=== PATIENT | female | born 1960 | race Caucasian/White ===

== ENCOUNTER 2017-05-21 10:17 | Inpatient (IN) ==
[2017-05-21] MEDS ORDERED: Acetaminophen 325 MG TABLET PO PRN (13:32)
[2017-05-21] MEDS ORDERED: *HR* Morphine 2 MG/ML SYRINGE IVP PRN (13:32)
[2017-05-21] MEDS ORDERED: Naloxone 0.4 MG/ML INJ IVP PRN (13:32)
[2017-05-21] MEDS ORDERED: Ondansetron 4 MG/2 ML VIAL IVP PRN (13:32)
[2017-05-21] MEDS: Pantoprazole 40 MG VIAL IVP SCH (14:11)
[2017-05-21 14:19] LABS: Basophils # 0.1 K/mcL (0.0-0.2); Basophils % 0.6 %; Eosinophils # 0.1 K/mcL (0.0-0.6); Eosinophils % 0.7 %; Hematocrit 40.9 % (35.3-44.9); Hemoglobin 14.6 g/dL (11.5-15.4); Immature Granulocytes % 0.3 % (0-4); Lymphocytes # 1.6 K/mcL (0.6-4.6); Lymphocytes % 17.9 %; Mean Corpuscular HGB Conc 35.7 g/dL (31.6-35.5); Mean Corpuscular Hemoglobin 32.5 pg (28.0-33.3); Mean Corpuscular Volume 91.1 fL (83.0-100.0); Mean Platelet Volume 9.4 fL (9.4-12.4); Monocytes # 0.6 K/mcL (0.0-1.3); Monocytes % 6.2 %; Neutrophils # 6.6 K/mcL (1.6-8.9); Platelet Count 285 K/mcL (140-400); Red Blood Count 4.49 M/mcL (3.82-4.97); Red Cell Distribution Width 14.3 % (11.5-14.5); Segmented Neutrophils % 74.3 %
[2017-05-21 14:32] LABS: BUN/Creatinine Ratio 21 (6-26); Blood Urea Nitrogen 15 mg/dL (7-20); Calcium 9.8 mg/dL (8.6-10.8); Carbon Dioxide 27 mEq/L (19-29); Chloride 109 mEq/L (98-109); Glucose 105 mg/dL (70-99); Osmolality,Calculated 293 (280-300); Potassium 3.7 mEq/L (3.5-4.5); Sodium 141 mEq/L (136-145); eGFR For African Americans > 60 (> 60); eGFR For Non-African Americans > 60 (> 60)
[2017-05-21 14:33] LABS: Chol/HDL Ratio 3.5 (0-4.9)
--- NOTE | 2017-05-21 14:48 | Internal Med History&Physical ---
<Govind August - Last Filed: 05/21/17 16:11> Date of Encounter: 05/21/17 Time of Encounter: 13:00 Assessment and Plan (1) Chest pain Current visit: Yes Status: Acute Patient presents with acute chest pain for the past 2 days which she states has become worse since 2 AM this morning. She describes the pain as sharp and stabbing now and is relieved with sitting up. Patient received nitroglycerin patch while at [facility]. Nitroglycerin SL PRN ordered. Patient placed on continuous cardiac telemetry and supplemental O2 with titration if SPO2 less than 92%. Initial two troponins and [facility] were 0.332 and 2.0 respectively. Initial troponin at [facility] was 2.48. Will trend troponins x2. Cardiology consult ordered and discussed with Dr. Persaud. Hematology consult ordered and discussed with Dr. Mir. Will continue to monitor patient closely for signs of bleeding. Will start heparin drip if PTT is within normal range. Patient to receive possible heart catheterization tomorrow, so patient will be NPO after midnight. Qualifiers: Chest pain type: other chest pain Qualified Code(s): R07.89 - Other chest pain; R07.8 - Other chest pain (2) Elevated troponin Current visit: Yes Status: Acute Patient presents with initial troponin level of 0.332 at [facility]. Before patient was transferred a second troponin level was requested which was 2.0. Troponin level drawn at [facility] was 2.48. Will trend troponins x2. Patient placed on continuous cardiac telemetry. Cardiology consult ordered and discussed with Dr. Persaud. Will continue to monitor patient. (3) SOB (shortness of breath) Current visit: Yes Status: Acute Patient presents with history of shortness of breath which she states has become acute within the past few days with exertion. CTA of chest ordered to rule out possible PE. Supplemental O2 with titration if SPO2 less than 92% ordered with continuous SpO2 monitoring. DuoNebs Q4 ordered PRN. Monitor patient and vital signs. (4) Elevated partial thromboplastin time (PTT) Current visit: Yes Status: Acute Patient presents with initial PTT of 64.1 at [facility] ED. Initial blood draw at [facility] shows PTT > 200. Stat PTT ordered. Hematology and cardiology updated on new PTT and will be notified of stat PTT results to determine the appropriateness of heparin drip for patient. 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 Hematology consult ordered and discussed with Dr. Mir who will see the patient and assess for heparin drip for current cardiac symptomatology and chest pain. (6) COPD (chronic obstructive pulmonary disease) Current visit: Yes Status: Chronic Patient presents with history of chronic COPD. Supplemental O2 with titration of SPO2 less than 90% ordered. Continuous SPO2 monitoring ordered. DuoNebs every 4 when necessary ordered. Qualifiers: COPD type: emphysema Emphysema type: unspecified Qualified Code(s): J43.9 - Emphysema, unspecified (7) HTN (hypertension) Current visit: Yes Status: Chronic Patient presents with history of chronic hypertension. Will monitor patient and vital signs and continue her hydrochlorothiazide and Cozaar. Qualifiers: Hypertension type: essential hypertension Qualified Code(s): I10 - Essential (primary) hypertension (8) HLD (hyperlipidemia) Current visit: Yes Status: Chronic Patient has history of chronic hyperlipidemia. Lipid panel ordered. Will continue patient's Lipitor. Qualifiers: Hyperlipidemia type: pure hypercholesterolemia Qualified Code(s): E78.00 - Pure hypercholesterolemia, unspecified; E78.0 - Pure hypercholesterolemia (9) DVT prophylaxis Current visit: Yes Status: Acute Patient placed on DVT prophylaxis admission protocol and current cardiac status. Patient currently suffers from factor XIII deficiency and received Brilinta at [facility] ED. SCDs ordered bilaterally for patient's lower extremities. Hematology consult placed. Internal Medicine - H&P: HPI Chief complaint: Chest pain Admitted From: Hospital to Hospital Transfer Plans for Post Hospital Care: Home History of present illness: Mrs. Morris is a 56 year old female who presents from the ED at [facility] with chief complaint of chest pain. Patient states her chest pain began 2 days ago between her shoulder blades which was located in the center of her back and moved to the left. She states this morning approximately at 2 AM she began to have sharp, stabbing pains in the center of her chest which became worse with laying down. She states the pain radiated to her left shoulder and left arm. She reports when she sat up the pain would lessen or subside. Mrs. morris has a history of 2 MIs, one in 2010 and another in 2012. She reports having no heart catheterizations replacement of stents in the past. She also reports SOB with exertion. Patient states that she had a nuclear pharm stress test and echocardiogram in February 2017 in preparation for gallbladder surgery. Nuclear stress test dated 02/20/17 showed small, mild intensity reversible perfusion defects involving the mid to apical anterior septum and apical lateral segments possibly due to breast attenuation, but ischemia could not be excluded. Test also showed no arrhythmias and a gated EF > 70%. Echocardiogram dated same date showed LVEF of 65%. Patient has a history of hyper lipidemia, hypertension, CT 2, COPD/emphysema, histoplasmosis with loss of central vision, CHF, factor XIII deficiency, and GERD. Mrs. Morris is a current every day smoker and denies alcohol or illicit drug use. Patient also reports history of falls recently. Patient's initial troponin level was 0.332 at [facility] with the requested second troponin level at 2.0 also at [place]. Patient is a moderate risk for cardiac event based on current symptomology and will be placed as observation status with continuous cardiac telemetry and supplemental O2 titration if SPO2 less than 92%, continuous SPO2 monitoring, trending troponins 3, cardiology consult ordered and discussed with Dr. Persaud who will see the patient, and nothing by mouth status except medications due to possible procedure. Hematology consult ordered and discussed with Dr. Mir due to patient being given Brilinta at [facility] and patient needing heparin drip for current cardiac symptomology. Patient to be monitored closely. Time spent with patient greater than 40 minutes. Past Med Surg Social Fam HX - Past Medical History Source: patient Medical history: asthma, COPD, hyperlipidemia, hypertension, myocardial infarction (x2 (first in 2010, second in 2012)) Psychiatric history: anxiety, depression - Past Surgical History Surgical History: , hysterectomy (Total), orthopedic, other (Right wrist), other (Bilteral tubal ligation, surgery on left axilla to remove excess breast tissue (non-cancerous)) - Social History Smoking Status: Current every day smoker Packs per day: 1 PPD Smokeless Tobacco Status: No Alcohol use: none Drug use: none Current living situation: Home Activity Level: Independent ambulation Recent Out of Country Travel Within the Last 8 Weeks: No Exposure or Possible Exposure to Illness During Travel: No - Family History Father Race: Family Member Ethnicity: Non- Living Status: Age at : 77 Cause of : CT Hx Family Cardiac Disorders: Yes (CT, HD, Stroke, HTN, HLD) Mother Race: Family Member Ethnicity: Non- Living Status: Age at : 73 Cause of : HD Hx Family Cardiac Disorders: Yes (HD) Hx Family Endocrine Disorder: Yes (DM) Brother Race: Family Member Ethnicity: Non- Living Status: Still Living Hx Family Cardiac Disorders: Yes (HTN, HD) Internal Medicine - H&P: Meds Albuterol Sulfate [Ventolin Hfa] 2 puff IH Q4H PRN 04/03/17 [History] Atorvastatin Calcium [Lipitor] 20 mg PO HS 04/03/17 [History] Carvedilol [Coreg] 6.25 mg PO BIDWM 04/03/17 [History] DULoxetine [Cymbalta] 30 mg PO BID 04/03/17 [History] Furosemide [Lasix] 20 mg PO DAILY 04/03/17 [History] Losartan Potassium [Cozaar] 100 mg PO DAILY 04/03/17 [History] Omeprazole [PriLOSEC] 40 mg PO DAILY 04/03/17 [History] Potassium Chloride [K-Tab ER] 20 meq PO BID 04/03/17 [History] Topiramate [Topamax] 100 mg PO BID 04/03/17 [History] hydroCHLOROthiazide [Hydrochlorothiazide] 25 mg PO DAILY 04/03/17 [History] Cetirizine HCl [All Day Allergy] 10 mg PO DAILY 05/21/17 [History] Allergies methyldopa [From Aldomet] Allergy (Verified 01/17/17 17:35) Hives terfenadine [From Seldane] Allergy (Verified 01/17/17 17:35) Hives Tetracycline Adverse Reaction (Verified 04/03/17 10:19) See Comments YEAST INFECTION All Systems PM: A 10-system review of systems was performed and is negative for pertinent findings except as documented above in the HPI. - Constitutional Constitutional: no chills, no fever(s), no night sweats - EENT Eyes: as per HPI, other visual disturbances (Loss of central vision due to histoplasmosis), no change in vision, no discharge, no pain, no photophobia Ears: no ear discharge, no ear pain, no tinnitus Nose, mouth and throat: no dysphagia, no nasal discharge, no neck pain, no sore throat - Breasts Breasts: as per HPI - Cardiovascular Cardiovascular ROS IM: as per HPI, chest pain, dyspnea on exertion - Respiratory Respiratory: as per HPI, dyspnea on exertion - Gastrointestinal Gastrointestinal: no abdominal pain, no diarrhea, no hematemesis, no hematochezia, no melena, no nausea, no vomiting - Genitourinary Genitourinary: no change in urinary stream, no dysuria, no flank pain, no hematuria Menstruation: as per HPI, post hysterectomy - Musculoskeletal Musculoskeletal ROS IM: no numbness, no tingling - Integumentary Integumentary IM: no rash, no unusual bruising - Neurological Neurological ROS: no confusion, no convulsions, no focal weakness, no numbness, no tingling, no tremor(s) - Psychiatric Psychiatric: as per HPI - Endocrine Endocrine IM: as per HPI - Hematologic/Lymphatic Hematologic/Lymphatic: as per HPI, easy bleeding, no easy bruising - Allergic/Immunologic Allergic/Immunologic: as per HPI - Constitutional Vitals: Temp Pulse Resp BP Pulse Ox 98.0 F 65 14 176/120 99 05/21/17 12:45 05/21/17 12:45 05/21/17 12:45 05/21/17 12:45 05/21/17 13:24 General appearance: Present: cooperative, A&O X 3, pleasant, no acute distress, obese, answers questions appropriately - Head Head exam: Present: atraumatic, normocephalic - Eye Eye exam: Present: PERRL, conjuntiva pink, sclera anicteric Pupils: Present: PERRL - ENT ENT exam: Present: normal exam, normal external ear exam - Neck Neck exam general surgery: Present: supple, trachea midline. Absent: lymphadenopathy - Respiratory Respiratory exam: Present: CTAB. Absent: accessory muscle use, rales, rhonchi, wheezes - Cardiovascular Cardiovascular exam: Present: RRR, +S1, +S2. Absent: diastolic murmur, gallop, rubs, systolic murmur - GI/Abdominal GI/Abdominal exam: Present: normal bowel sounds, soft, no peritoneal signs. Absent: distended, tenderness - Rectal Rectal exam: Present: deferred - Additional comments: exam deferred. - Extremities Exam Extremities exam: Present: pedal edema (Non-pitting), warm, radial pulses palpable and symetrical. Absent: calf tenderness, cyanotic - Back Exam Back exam: Present: normal inspection - Neurological Exam Neurological exam: Present: CN II-XII intact, oriented X3, no focal deficits. Absent: pronater drift, facial droop, speech deficit - Psychiatric Psychiatric exam: Present: normal affect, normal mood - Skin Skin exam: Present: dry, intact Internal Med - H&P Results - Labs CBC & Chem 7: 05/21/17 14:00 05/21/17 14:00 Labs: Short CBC 05/21/17 Range/Units 14:00 WBC 8.9 (4.3-11.1) K/mcL Hgb 14.6 (11.5-15.4) g/dL Hct 40.9 (35.3-44.9) % Plt Count 285 (140-400) K/mcL Neutrophils # 6.6 (1.6-8.9) K/mcL - EKG Data EKG shows normal: sinus rhythm - EKG Data Prior EKG available for review: no EKG comments: 05/21/17 14:59 EKG dated 05/21/17 from [facility] shows sinus rhythm with premature atrial complexes, otherwise normal ECG. - Diagnostic Studies Chest x-ray Additional comments: 1-View CXR of the chest taken at [facility] shows the lungs are without acute focal process. There is no effusion or pneumothorax. The cardiomediastinal silhouette is without acute process. The osseous structures are without acute process. Overall impression is no acute process. <Jona Carrasco - Last Filed: 05/21/17 17:28> Date of Encounter: 05/21/17 Time of Encounter: 14:45 Internal Medicine - H&P: HPI History of present illness: Ms. Morris is a 56 year old female All Systems PM: A 10-system review of systems was performed and is negative for pertinent findings except as documented above in the HPI. - Constitutional Vitals: Temp Pulse Resp BP Pulse Ox 97.6 F 68 16 148/88 97 05/21/17 16:17 05/21/17 16:17 05/21/17 16:17 05/21/17 16:17 05/21/17 16:17 Internal Med - H&P Results - Labs CBC & Chem 7: 05/21/17 14:00 05/21/17 14:00 Labs: Short CBC 05/21/17 Range/Units 14:00 WBC 8.9 (4.3-11.1) K/mcL Hgb 14.6 (11.5-15.4) g/dL Hct 40.9 (35.3-44.9) % Plt Count 285 (140-400) K/mcL Neutrophils # 6.6 (1.6-8.9) K/mcL BMP 05/21/17 14:00 Sodium 141 Potassium 3.7 Chloride 109 Carbon Dioxide 27 BUN 15 Creatinine 0.73 Glucose 105 H Calcium 9.8 Cardiac Enzymes 05/21/17 Range/Units 14:00 Troponin I 2.48 H* (0-0.03) ng/mL - Impressions ITS Impressions Chest CTA 05/21/17 15:39 IMPRESSION: No evidence of pulmonary embolism or acute pulmonary abnormality. D/ / Alvin Toriibo MD / Alvin Toribio MD Interpreting Provider: Alvin Toribio MD - Attending Attestation I examined this patient and my medical decision-making was reviewed with the nurse practitioner. I agree with the documented history of present illness, review of systems, past medical, surgical social and family histories and examination findings, disposition and treatment plan as described above except to any changes set forth below. 56-year-old female patient with history of hypertension, COPD, CT, factor XIII deficiency without history of prior cardiac catheterization presented to the ER with complaints of chest pain. Pain initially began in between her shoulder blades 2 days back and has progressively become worse especially since this morning. It is now mostly present on the left side of her chest. She denies any associated shortness of breath or palpitations. Her pain improved initially with nitroglycerin but it returned and she received morphine to help with her pain. She had undergone a cardiac stress test in February which showed small mild intensity reversible perfusion defects in the mid to apical anterior septum and apical lateral segments. As the patient was not having any chest pain then, this was not worked up further. She had undergone the stress test in preparation for gallbladder surgery. She underwent cholecystectomy done and has been doing well without any issues. On examination, patient is awake and alert. S1 and S2 are normal. Heart rhythm is normal. No reproducible chest wall tenderness. Breath sounds normal. Lab work shows an elevated APTT of 261.6. Troponin in the ER was 0.332 and 2. EKG shows normal sinus ST segment changes Acute non-ST elevation CT: Cardiology has been consulted. We will follow cardiology recommendations. Patient did receive Brilinta but given that the patient has a history of factor XIII deficiency, she is at high risk for bleeding. Oncology has been consulted for recommendations. They recommended checking factor XIII levels. Given that the patient's APTT is already prolonged period, we will hold off on IV heparin therapy. Patient is potentially not a candidate for drug-eluting stent as she would not be able to tolerate dual antiplatelet therapy for long period of time with her history of factor XIII deficiency. Will manage patient in close conjunction with cardiology and hematology/oncology. Factor XIII deficiency: Monitor for signs of bleeding. If patient does develop bleeding, we will stop antiplatelet agents and transfuse FFP and platelets as needed. Essential hypertension: Uncontrolled. Resume home medications and monitor blood pressure closely. At this time antihypertensive regimen based on patient' s blood pressure. COPD: Not in acute exacerbation. Use bronchodilators as needed. Chronic smoker: Patient has been counseled about cessation.
[2017-05-21] MEDS: hydroCHLOROthiazide 25 MG TABLET PO SCH (14:58)
[2017-05-21] MEDS: Furosemide 20 MG TABLET PO SCH (14:59)
[2017-05-21] MEDS: Topiramate 100 MG TABLET PO SCH ×2 (14:59→22:10)
--- NOTE | 2017-05-21 15:13 | Oncology Inp Consult Note ---
Date of Encounter: 05/21/17 Time of Encounter: 15:06 Assessment and Plan (1) Factor XIII deficiency Status: Chronic Assessment and plan: Clinically throug the years she has behaved as a mild deficiency. We will check factor XIII plasma levels to confirm the diagnosis. If her repeated APTT reveal values within normal limits,she will be cleared to proceed with cardiac cath in AM, along with dual anti platelet agents. Id prefer to avoid drug eluting stents. she has tolerated aspirin well in the past. - Check factor XIII levels. - Repeat APTT Stat - check APTT/INR, thrombin time, fibrinogen, CBC, BMP, LFT. - If she experiences bleeding events while anticoagulated, initial management will include discontinuation of anticoagulation. If persistent bleeding, as last resource ( in view of ACS) considerations would include FFP or PCC - Will follow (2) Chest pain Status: Acute Assessment and plan: As discussed with cardiology and primary attending, if coagulation work up does not show any significantly abnormal abnormality, she will be cleared to proceed with full anticoagulation, and dual antiplatelets agents. These recommendations is based in the fact that trough the years she denies any history consistent with a severe coagulation factor deficiency ( prior events without significant bleeding: cholecystectomy, PA treated with anticoagulation, Hiisterectomy). Coronary th is planned tentatively for tomorrow. At this time she denies chest pain, so it seems reasonable to continue antiplatelet agent, but hold off on heparin due to prolonged APTT. APTT will be repeated STAT, if values are within normal parameters, I would recommend to start heparin drip with a modified APTT goal ( 50-70 seconds Qualifiers: Chest pain type: other chest pain Qualified Code(s): R07.89 - Other chest pain; R07.8 - Other chest pain - Data of Consult Requesting Physician: Gallo Huang Primary Care Provider: Ck Taylor CNP - Consult Narrative Reason for consult: ACS in the setting of reported history of factor XIII deficiency History of present illness: Ms. Hope is a 56 year old female who reports a history of factor XIII defiency diagnosed approximately 30 years ago. SHe was transferred from outside hospital due to an acute coronary syndrome. Hematology consult was requested for recommendations of anticoagulation in the setting of ongoing ACS. Ms. Hope was seen with her daughter who was present at the bedside. She reports that she was diagnosed during a pre operative evaluation while being . She reports that her ( approximately 29 years ago) was caracterized for intermittent vaginal bleeding, for which she was recommended to have prolonged rest due to concerns for miscarriage. she reports that she delivered her baby by C section, without complications, including not excessive bleeding and non complicated post operative course. Later on, she underwent a tubal ligation, again without bleeding complications. She reports history of uterine polyps and associated bleeding, but resolved after undergoing hysterectomy ( denies being told about excessive bleeding during surgical procedure).She reports 2 prior episodes of PA, one in 2010 and another in 2012. She reports that the treastment of the second one included blood thinners SQ ( lovenox? ), but not cardiac cath. she did not bleeding while anticoagulated in the settings of the PA. She was taking baby asa until 3 months ago, and denies bleeding events while on aspirin. She denies any history of easy bruising.A At the time of the visit she is calmed and reports that her chest pain has resolved. Past Med Surg Social Fam HX - Past Medical History Source: other Medical history: asthma, COPD, hyperlipidemia, hypertension, myocardial infarction (x2 (first in 2010, second in 2012)) Psychiatric history: anxiety, depression - Past Surgical History Surgical History: , hysterectomy (Total), orthopedic, other (Right wrist), other (Bilteral tubal ligation, surgery on left axilla to remove excess breast tissue (non-cancerous)) - Social History Smoking Status: Current every day smoker Packs per day: 1 PPD Smokeless Tobacco Status: No Alcohol use: none Drug use: none - Family History Father Race: Family Member Ethnicity: Non- Living Status: Age at : 77 Cause of : PA Hx Family Cardiac Disorders: Yes (PA, HD, Stroke, HTN, HLD) Mother Race: Family Member Ethnicity: Non- Living Status: Age at : 73 Cause of : HD Hx Family Cardiac Disorders: Yes (HD) Hx Family Endocrine Disorder: Yes (DM) Brother Race: Family Member Ethnicity: Non- Living Status: Still Living Hx Family Cardiac Disorders: Yes (HTN, HD) Hx Family Medical Disorders: Yes (reports that her brother also has factor XIII deficiency) Medications and Allergies Albuterol Sulfate [Ventolin Hfa] 2 puff IH Q4H PRN 05/31/17 [History] Atorvastatin Calcium [Lipitor] 20 mg PO HS 04/03/17 [History] Carvedilol [Coreg] 6.25 mg PO BIDWM 04/03/17 [History] DULoxetine [Cymbalta] 30 mg PO BID 04/03/17 [History] Furosemide [Lasix] 20 mg PO DAILY 04/03/17 [History] Losartan Potassium [Cozaar] 100 mg PO DAILY 04/03/17 [History] Omeprazole [PriLOSEC] 40 mg PO DAILY 04/03/17 [History] Potassium Chloride [K-Tab ER] 20 meq PO BID 04/03/17 [History] Topiramate [Topamax] 100 mg PO BID 04/03/17 [History] hydroCHLOROthiazide [Hydrochlorothiazide] 25 mg PO DAILY 04/03/17 [History] Cetirizine HCl [All Day Allergy] 10 mg PO DAILY 05/21/17 [History] Allergies methyldopa [From Aldomet] Allergy (Verified 01/17/17 17:35) Hives terfenadine [From Seldane] Allergy (Verified 01/17/17 17:35) Hives Tetracycline Adverse Reaction (Verified 04/03/17 10:19) See Comments YEAST INFECTION Constitutional: Present: fatigue. Absent: headache(s), weight loss Eyes: Present: as per HPI. Absent: pain Ears: Present: as per HPI. Absent: decreased hearing, ear pain Nose, mouth and throat: Present: other Additional comments: Denies history of mouth bleeding or bleeding after dental work Cardiovascular: Present: chest pain Respiratory: Absent: cough, wheezing Gastrointestinal: Absent: abdominal pain, coffee ground emesis, hematemesis Additional comments: No hematochezia or melena Neurological: Absent: focal weakness, other visual disturbances Oncology - Exam - Constitutional Vitals: Temp Pulse Resp BP Pulse Ox 98.0 F 65 14 176/120 99 05/21/17 12:45 05/21/17 12:45 05/21/17 12:45 05/21/17 12:45 05/21/17 13:24 - Head Head exam: Present: normal inspection - ENT ENT exam: Present: normal oropharynx - Neck Neck exam: Present: normal inspection Oncology - Results - Labs Labs: Short CBC 05/21/17 Range/Units 14:00 WBC 8.9 (4.3-11.1) K/mcL Hgb 14.6 (11.5-15.4) g/dL Hct 40.9 (35.3-44.9) % Plt Count 285 (140-400) K/mcL Neutrophils # 6.6 (1.6-8.9) K/mcL BMP 05/21/17 14:00 Sodium 141 Potassium 3.7 Chloride 109 Carbon Dioxide 27 BUN 15 Creatinine 0.73 Glucose 105 H Calcium 9.8 Cardiac Enzymes 05/21/17 Range/Units 14:00 Troponin I 2.48 H* (0-0.03) ng/mL Consult Discharge Plan - Plan Referrals: Ck Taylor, [facility] [Primary Care Provider] -
[2017-05-21] MEDS ORDERED: Ipratropium/Albuterol Neb 3 ML IH PRN (15:33)
[2017-05-21 15:35] LABS: Prothrombin Time 10.8 Seconds (9.4-12.1)
[2017-05-21 15:37] LABS: Activated Partial Thrombo Time 261.6 Seconds (26.0-36.0)
[2017-05-21 15:48] LABS: Heparin anti-factor XA UFH 0.01 IU/mL (0.30-0.70)
--- NOTE | 2017-05-21 15:56 | Cardiology Consult Note ---
Date of Encounter: 05/21/17 Time of Encounter: 15:54 Assessment and Plan (1) NSTEMI (non-ST elevated myocardial infarction) Current Visit: Yes Status: Acute Per Cardiology: NSTEMI with troponin as high as 2.09. Currently pain free. TTE 02/2017: EF 65%. Mild concentric LVH. No significant valvular disease. Stress test 02/2017: Gated EF 70%. Small, mild intensity reversible perfusion defect involving the mid to apical anteroseptum and apical lateral segments. Findings suspected to be due to breast attenuation. Ischemia could not be ruled out. Inconclusive stress test. She was scheduled with cardiology to discuss test results. [facility] recommended for further evaluation, R/B/A of [facility] discussed. She agrees to proceed. Check limited TTE to assess LV function. Trend troponin. Brilinta 180 mg load given at [facility]. Continue brilinta 90 mg BID. Asa, statin, and bb. Smoking cessation discussed. Heparin gtt will be ordered once PTT at an acceptable level. [facility] in am. CTA of chest ordered by primary team for evaluation of SOB. Patient has a history of a factor XIII deficiency diagnosed 29 years ago during . Hematology consulted for recommendation. Patient denies difficulty bleeding since that time. Discussion w patient/family: The assessment and plan as outlined above was discussed with the patient and/or family members who expressed understanding and agreement. All questions were answered. Thank you for involving us in the care of your patient. Please call with any questions. 1. NSTEMI History of Present Illness Consult date: 05/21/17 Requesting physician: Govind August Consult reason: NSTEMI Chief complaint: back and chest pain. History of present illness: Ms. Hope is a 56 year old female with a history of HTN and tobacco use who presents with the c/o mid scapular pain radiating to her left arm starting two days ago. Pain started at rest. She states that her pain increases when laying flat and improves with sitting up or with a rocking motion. This morning her pain radiated to her chest. She associates her pain with SOB. She denies palpitations or diaphoresis. She is currently pain free. Cardiology consulted for NSTEMI. Troponin up to 2.09. She was given baby asa and brilinta at [facility] per nurse who received report. She reports h/o MA. After further discussion she reports she was told by a physician she did not have an MA in 2010 but she had symptoms of one. A stress test completed at outside hospital in 2012 showed evidence of previous MA. No clear if she had an MA at that time. No further evaluation recommended. Past Med Surg Social Fam HX - Past Medical History Medical history: asthma, COPD, hyperlipidemia, hypertension, myocardial infarction (x2 (first in 2010, second in 2012)) Psychiatric history: anxiety, depression - Past Surgical History Surgical History: , hysterectomy (Total), orthopedic, other (Right wrist), other (Bilteral tubal ligation, surgery on left axilla to remove excess breast tissue (non-cancerous)) - Social History Smoking Status: Current every day smoker Packs per day: 1 PPD Smokeless Tobacco Status: No Alcohol use: none Drug use: none - Family History Father Race: Family Member Ethnicity: Non- Living Status: Age at : 77 Cause of : MA Hx Family Cardiac Disorders: Yes (MA, HD, Stroke, HTN, HLD) Mother Race: Family Member Ethnicity: Non- Living Status: Age at : 73 Cause of : HD Hx Family Cardiac Disorders: Yes (HD) Hx Family Endocrine Disorder: Yes (DM) Brother Race: Family Member Ethnicity: Non- Living Status: Still Living Hx Family Cardiac Disorders: Yes (HTN, HD) Hx Family Medical Disorders: Yes (reports that her brother also has factor XIII deficiency) Medications and Allergies Albuterol Sulfate [Ventolin Hfa] 2 puff IH Q4H PRN 04/03/17 [History] Atorvastatin Calcium [Lipitor] 20 mg PO HS 04/03/17 [History] Carvedilol [Coreg] 6.25 mg PO BIDWM 04/03/17 [History] DULoxetine [Cymbalta] 30 mg PO BID 04/03/17 [History] Furosemide [Lasix] 20 mg PO DAILY 04/03/17 [History] Losartan Potassium [Cozaar] 100 mg PO DAILY 04/03/17 [History] Omeprazole [PriLOSEC] 40 mg PO DAILY 04/03/17 [History] Potassium Chloride [K-Tab ER] 20 meq PO BID 04/03/17 [History] Topiramate [Topamax] 100 mg PO BID 04/03/17 [History] hydroCHLOROthiazide [Hydrochlorothiazide] 25 mg PO DAILY 04/03/17 [History] Cetirizine HCl [All Day Allergy] 10 mg PO DAILY 05/21/17 [History] Allergies methyldopa [From Aldomet] Allergy (Verified 01/17/17 17:35) Hives terfenadine [From Seldane] Allergy (Verified 01/17/17 17:35) Hives Tetracycline Adverse Reaction (Verified 04/03/17 10:19) See Comments YEAST INFECTION All Systems Review: A 10-system review of systems was performed and is negative for pertinent findings except as documented above in the HPI. Physical Examination Vital Signs, Last 4 Hours Temp Pulse Resp BP Pulse Ox 05/21/17 13:24 99 05/21/17 12:45 98.0 F 65 14 176/120 99 General: Conversant, No Apparent Distress HEENT: Atraumatic, Normocephaly, Mucus Membranes Moist Neck: No JVD, Normal carotid pulses Cardiac: Reg Rate and Rhythm, Normal S1 and S2, No Murmur Lungs: Normal Breath Sounds, No Wheeze, Rales, Rhonchi Neuro: Alert and responsive, No focal deficits noted Abdomen: Soft, Non-Tender Skin: No rashes noted on visualized skin Musculoskeletal: No Chest Wall Tenderness Extremities: No Clubbing, No Cyanosis, No Edema, Normal Pulses Results 05/21/17 14:00 05/21/17 14:00 Lab Results 05/21/17 05/21/17 05/21/17 14:00 14:00 14:00 WBC 8.9 Hgb 14.6 Hct 40.9 Plt Count 285 INR APTT Sodium Potassium Chloride Carbon Dioxide BUN Creatinine Glucose Calcium Magnesium 2.0 Troponin I 2.48 H* 05/21/17 05/21/17 14:00 15:03 WBC Hgb Hct Plt Count INR 1.0 APTT 261.6 H* Sodium 141 Potassium 3.7 Chloride 109 Carbon Dioxide 27 BUN 15 Creatinine 0.73 Glucose 105 H Calcium 9.8 Magnesium Troponin I - EKG Interpretation EKG results cardiology: personally reviewed (EKG shows NSR with no acute ST changes.) Consult Discharge Plan - Plan Referrals: Ck Taylor, LADDERMAN [Primary Care Provider] -
[2017-05-21] MEDS: *HR* HYDROcodone/Acet 5/325 mg TABLET PO PRN ×2 (17:10→22:12)
--- NOTE | 2017-05-21 18:04 | Oncology Inp Progress Note ---
Date of Encounter: 05/21/17 Time of Encounter: 18:05 (1) Factor XIII deficiency Current Visit: Yes Status: Chronic Assessment and plan: Clinically throug the years she has behaved as a mild deficiency. We will check factor XIII plasma levels to confirm the diagnosis. If her repeated APTT reveal values within normal limits,she will be cleared to proceed with cardiac cath in AM, along with dual anti platelet agents. Id prefer to avoid drug eluting stents. she has tolerated aspirin well in the past. - Check factor XIII levels. - Repeat APTT Stat - check APTT/INR, thrombin time, fibrinogen, CBC, BMP, LFT. - If she experiences bleeding events while anticoagulated, initial management will include discontinuation of anticoagulation. If persistent bleeding, as last resource ( in view of ACS) considerations would include FFP or PCC - Will follow (2) Chest pain Current Visit: Yes Status: Acute Assessment and plan: As discussed with cardiology and primary attending, if coagulation work up does not show any significantly abnormal abnormality, she will be cleared to proceed with full anticoagulation, and dual antiplatelets agents. These recommendations is based in the fact that trough the years she denies any history consistent with a severe coagulation factor deficiency ( prior events without significant bleeding: cholecystectomy, [place] treated with anticoagulation, Hiisterectomy). Coronary th is planned tentatively for tomorrow. At this time she denies chest pain, so it seems reasonable to continue antiplatelet agent, but hold off on heparin due to prolonged APTT. APTT will be repeated STAT, if values are within normal parameters, I would recommend to start heparin drip with a modified APTT goal ( 50-70 seconds Qualifiers: Chest pain type: other chest pain Qualified Code(s): R07.89 - Other chest pain; R07.8 - Other chest pain (3) Bleeding disorder Current Visit: Yes Status: Acute (4) Bleeding disorder Current Visit: Yes Status: Acute Assessment and plan: In view of prolonged APTT 261---> 288 seconds around 4 PM, and her relatively stable condition, I would recommend to hold off on plans for cardiac cath until the etiology of her bleeding disorder has been clarified. Typically, factor 13 deficiency is not associated with prolonged APTT, so there may be an additional disorder/s causing her abnormal labs. I would suggest to check Lupus anticoagulant, B2 glycoprotein, IgG and IgM, anti cardiolipin antibodies, factors 8, 9, 11 and 12 ( in addtion to factor 13 that was previously recommended) Repeat APTT in AM. will follow - Constitutional Vitals: Vital Signs Temp Pulse Resp BP Pulse Ox 05/21/17 16:17 97.6 F 68 16 148/88 97 05/21/17 13:24 99 05/21/17 12:45 98.0 F 65 14 176/120 99 Intake and Output 05/21/17 05/21/17 05/21/17 07:59 15:59 23:59 Other: Weight 103.147 kg Patient Weight 05/21/17 23:59 Weight 103.147 kg Oncology: Obj Data - Labs CBC & Chem 7: 05/21/17 14:00 05/21/17 14:00 Labs: Laboratory Results - last 24 hr 05/21/17 05/21/17 05/21/17 14:00 14:00 14:00 WBC 8.9 RBC 4.49 Hgb 14.6 Hct 40.9 MCV 91.1 MCH 32.5 MCHC 35.7 H RDW 14.3 Plt Count 285 MPV 9.4 Immature Gran % 0.3 Seg Neutrophils % 74.3 Lymphocytes % 17.9 Monocytes % 6.2 Eosinophils % 0.7 Basophils % 0.6 Neutrophils # 6.6 Lymphocytes # 1.6 Monocytes # 0.6 Eosinophils # 0.1 Basophils # 0.1 PT INR APTT Heparin Anti-Xa, Unfract Sodium Potassium Chloride Carbon Dioxide BUN Creatinine Est GFR ( Amer) Est GFR (Non-Af Amer) BUN/Creatinine Ratio Glucose Calculated Osmolality Calcium Magnesium 2.0 Troponin I 2.48 H* Triglycerides 138 Cholesterol 165 LDL Cholesterol, Calc 90 VLDL Cholesterol, Calc 28 HDL Cholesterol 47 Cholesterol/HDL Ratio 3.5 Specimen Rejected 05/21/17 05/21/17 05/21/17 14:00 14:00 15:03 WBC RBC Hgb Hct MCV MCH MCHC RDW Plt Count MPV Immature Gran % Seg Neutrophils % Lymphocytes % Monocytes % Eosinophils % Basophils % Neutrophils # Lymphocytes # Monocytes # Eosinophils # Basophils # PT 10.8 INR 1.0 APTT 261.6 H* Heparin Anti-Xa, Unfract 0.01 L Sodium 141 Potassium 3.7 Chloride 109 Carbon Dioxide 27 BUN 15 Creatinine 0.73 Est GFR ( Amer) > 60 Est GFR (Non-Af Amer) > 60 BUN/Creatinine Ratio 21 Glucose 105 H Calculated Osmolality 293 Calcium 9.8 Magnesium Troponin I Triglycerides Cholesterol LDL Cholesterol, Calc VLDL Cholesterol, Calc HDL Cholesterol Cholesterol/HDL Ratio Specimen Rejected Clotted 05/21/17 16:30 WBC RBC Hgb Hct MCV MCH MCHC RDW Plt Count MPV Immature Gran % Seg Neutrophils % Lymphocytes % Monocytes % Eosinophils % Basophils % Neutrophils # Lymphocytes # Monocytes # Eosinophils # Basophils # PT INR APTT 288.3 H* Heparin Anti-Xa, Unfract Sodium Potassium Chloride Carbon Dioxide BUN Creatinine Est GFR ( Amer) Est GFR (Non-Af Amer) BUN/Creatinine Ratio Glucose Calculated Osmolality Calcium Magnesium Troponin I Triglycerides Cholesterol LDL Cholesterol, Calc VLDL Cholesterol, Calc HDL Cholesterol Cholesterol/HDL Ratio Specimen Rejected - Impressions Impressions Chest CTA 05/21/17 15:39 IMPRESSION: No evidence of pulmonary embolism or acute pulmonary abnormality. D/ / Alvin Toribio MD / Alvin Toribio MD Interpreting Provider: Alvin Toribio MD - ABG Interpretation ABG results: PT/INR, D-dimer PT 10.8 Seconds (9.4-12.1) 05/21/17 15:03 Consult Discharge Plan - Plan Referrals: Ck Taylor, [employer] COMM[employer] INSTRUCTOR [Primary Care Provider] -
[2017-05-21] MEDS ORDERED: *HR* Ticagrelor 90 MG TABLET PO SCH (21:00)
[2017-05-22] MEDS ORDERED: 0.9 % Sodium Chloride 250 ML IVC ONE ×2 (00:47→01:41)
[2017-05-22 02:30] LABS: Basophils # 0.1 K/mcL (0.0-0.2); Basophils % 0.7 %; Eosinophils # 0.1 K/mcL (0.0-0.6); Eosinophils % 1.2 %; Hematocrit 41.6 % (35.3-44.9); Hemoglobin 14.5 g/dL (11.5-15.4); Immature Granulocytes % 0.2 % (0-4); Lymphocytes # 2.3 K/mcL (0.6-4.6); Lymphocytes % 27.1 %; Mean Corpuscular HGB Conc 34.9 g/dL (31.6-35.5); Mean Corpuscular Hemoglobin 31.6 pg (28.0-33.3); Mean Corpuscular Volume 90.6 fL (83.0-100.0); Mean Platelet Volume 9.3 fL (9.4-12.4); Monocytes # 0.6 K/mcL (0.0-1.3); Monocytes % 6.4 %; Neutrophils # 5.5 K/mcL (1.6-8.9); Platelet Count 308 K/mcL (140-400); Red Blood Count 4.59 M/mcL (3.82-4.97); Red Cell Distribution Width 14.4 % (11.5-14.5); Segmented Neutrophils % 64.4 %
[2017-05-22 02:32] LABS: INR 1.1; Prothrombin Time 11.7 Seconds (9.4-12.1)
[2017-05-22 02:46] LABS: BUN/Creatinine Ratio 17 (6-26); Blood Urea Nitrogen 12 mg/dL (7-20); Calcium 9.8 mg/dL (8.6-10.8); Carbon Dioxide 27 mEq/L (19-29); Chloride 106 mEq/L (98-109); Glucose 115 mg/dL (70-99); Osmolality,Calculated 289 (280-300); Potassium 3.4 mEq/L (3.5-4.5); Sodium 139 mEq/L (136-145); eGFR For African Americans > 60 (> 60); eGFR For Non-African Americans > 60 (> 60)
[2017-05-22 06:12] LABS: Activated Partial Thrombo Time > 360.0 Seconds (26.0-36.0)
[2017-05-22 06:18] LABS: Heparin anti-factor XA UFH 0.02 IU/mL (0.30-0.70)
[2017-05-22] MEDS: Loratadine 10 MG TABLET PO SCH (07:46)
[2017-05-22] MEDS: Topiramate 100 MG TABLET PO SCH ×2 (07:46→22:32)
[2017-05-22] MEDS: Aspirin Enteric Coated 81 MG Tablet PO SCH (07:46)
[2017-05-22] MEDS: Furosemide 20 MG TABLET PO SCH (07:47)
[2017-05-22] MEDS: Pantoprazole 40 MG VIAL IVP SCH (07:47)
[2017-05-22] MEDS: hydroCHLOROthiazide 25 MG TABLET PO SCH (07:47)
--- NOTE | 2017-05-22 08:49 | Oncology Inp Progress Note ---
Date of Encounter: 05/22/17 Time of Encounter: 08:47 (1) Chest pain Current Visit: Yes Status: Acute Assessment and plan: Troponins are trending down and she denies chest pain during the visit. In view of worsening values of APTT without a clear explanation, I'd recommend to hold off on plans for cath/PCI. will complete coagulation work up. As discussed with hematology lab, most of the labs are sent out and probably wont be here until Saturday. Ideally she should not be discharged until coagulation labs are available, to be able to provide appropriate recommendations. Qualifiers: Chest pain type: other chest pain Qualified Code(s): R07.89 - Other chest pain; R07.8 - Other chest pain (2) Bleeding disorder Current Visit: Yes Status: Acute Assessment and plan: APTT values remain significantly prolonged and trending up >300. She is not experiencing any bleeding event or bruising episodes. In view of low anti Xa levels, heparin contamination seems unllikely. Potential etiologies to explain prolonge APTT include APS, factor X inhibitor, or coagulation factor deficiencies involving the intrinsec pathway ( since INR was normal, what is consistent with intact extrinsec pathway). Intrinsec pathway factors include factor 8,9, 11, 12, 13. - As described in prior note, check factor 8,9, 11, 12, 13 ( send out). - Check anti cardiolipin antibodies, beta 2 glycoprotein, ; lupus anticoagulant ( send out) - Check fibrinogen. - Monitor APTT daily. -Check mixing study for APTT ( send out). Oncology: Subj Interval history: Reports feeling well. Denies chest pain, shortness of breath Denies bleeding events, no bruising. - Constitutional Vitals: Vital Signs Temp Pulse Resp BP Pulse Ox 05/22/17 07:52 94 05/22/17 07:15 98.5 F 71 14 102/67 94 05/22/17 04:34 97.9 F 61 16 101/69 98 05/22/17 02:11 95/59 05/22/17 01:35 89/55 05/22/17 00:35 98.1 F 77 16 85/54 98 05/21/17 20:34 97.6 F 58 16 115/75 97 05/21/17 16:17 97.6 F 68 16 148/88 97 05/21/17 13:24 99 05/21/17 12:45 98.0 F 65 14 176/120 99 Intake and Output 05/21/17 05/22/17 05/22/17 23:59 07:59 15:59 Intake Total 20 / 20 Output Total 0 / 0 Balance 20 / 20 Intake: Oral 20 / 20 Output: Urine 0 / 0 Other: Weight 104.2 kg Patient Weight 05/22/17 23:59 Weight 104.2 kg - Head Head exam: Present: normal inspection - ENT ENT exam: Present: normal exam - Respiratory Respiratory exam: Present: CTAB - Cardiovascular Cardiovascular exam: Present: +S1 - GI/Abdominal GI/Abdominal exam: Present: normal bowel sounds - Extremities Exam Extremities exam: Present: normal inspection - Neurological Exam Neurological exam: Present: alert Oncology: Obj Data - Labs CBC & Chem 7: 05/22/17 02:04 05/22/17 02:04 Labs: Laboratory Results - last 24 hr 05/21/17 05/21/17 05/21/17 14:00 14:00 14:00 WBC 8.9 RBC 4.49 Hgb 14.6 Hct 40.9 MCV 91.1 MCH 32.5 MCHC 35.7 H RDW 14.3 Plt Count 285 MPV 9.4 Immature Gran % 0.3 Seg Neutrophils % 74.3 Lymphocytes % 17.9 Monocytes % 6.2 Eosinophils % 0.7 Basophils % 0.6 Neutrophils # 6.6 Lymphocytes # 1.6 Monocytes # 0.6 Eosinophils # 0.1 Basophils # 0.1 PT INR APTT Heparin Anti-Xa, Unfract Sodium Potassium Chloride Carbon Dioxide BUN Creatinine Est GFR ( Amer) Est GFR (Non-Af Amer) BUN/Creatinine Ratio Glucose Calculated Osmolality Calcium Magnesium 2.0 Troponin I 2.48 H* Triglycerides 138 Cholesterol 165 LDL Cholesterol, Calc 90 VLDL Cholesterol, Calc 28 HDL Cholesterol 47 Cholesterol/HDL Ratio 3.5 Specimen Rejected 05/21/17 05/21/17 05/21/17 14:00 14:00 15:03 WBC RBC Hgb Hct MCV MCH MCHC RDW Plt Count MPV Immature Gran % Seg Neutrophils % Lymphocytes % Monocytes % Eosinophils % Basophils % Neutrophils # Lymphocytes # Monocytes # Eosinophils # Basophils # PT 10.8 INR 1.0 APTT 261.6 H* Heparin Anti-Xa, Unfract 0.01 L Sodium 141 Potassium 3.7 Chloride 109 Carbon Dioxide 27 BUN 15 Creatinine 0.73 Est GFR ( Amer) > 60 Est GFR (Non-Af Amer) > 60 BUN/Creatinine Ratio 21 Glucose 105 H Calculated Osmolality 293 Calcium 9.8 Magnesium Troponin I Triglycerides Cholesterol LDL Cholesterol, Calc VLDL Cholesterol, Calc HDL Cholesterol Cholesterol/HDL Ratio Specimen Rejected Clotted 05/21/17 05/21/17 05/22/17 16:30 20:01 02:04 WBC RBC Hgb Hct MCV MCH MCHC RDW Plt Count MPV Immature Gran % Seg Neutrophils % Lymphocytes % Monocytes % Eosinophils % Basophils % Neutrophils # Lymphocytes # Monocytes # Eosinophils # Basophils # PT INR APTT 288.3 H* Heparin Anti-Xa, Unfract Sodium Potassium Chloride Carbon Dioxide BUN Creatinine Est GFR ( Amer) Est GFR (Non-Af Amer) BUN/Creatinine Ratio Glucose Calculated Osmolality Calcium Magnesium Troponin I 2.48 H* 2.06 H* Triglycerides Cholesterol LDL Cholesterol, Calc VLDL Cholesterol, Calc HDL Cholesterol Cholesterol/HDL Ratio Specimen Rejected 05/22/17 05/22/17 05/22/17 02:04 02:04 02:04 WBC 8.6 RBC 4.59 Hgb 14.5 Hct 41.6 MCV 90.6 MCH 31.6 MCHC 34.9 RDW 14.4 Plt Count 308 MPV 9.3 L Immature Gran % 0.2 Seg Neutrophils % 64.4 Lymphocytes % 27.1 Monocytes % 6.4 Eosinophils % 1.2 Basophils % 0.7 Neutrophils # 5.5 Lymphocytes # 2.3 Monocytes # 0.6 Eosinophils # 0.1 Basophils # 0.1 PT 11.7 INR 1.1 APTT > 360.0 H* Heparin Anti-Xa, Unfract 0.02 L Sodium 139 Potassium 3.4 L Chloride 106 Carbon Dioxide 27 BUN 12 Creatinine 0.70 Est GFR ( Amer) > 60 Est GFR (Non-Af Amer) > 60 BUN/Creatinine Ratio 17 Glucose 115 H Calculated Osmolality 289 Calcium 9.8 Magnesium Troponin I Triglycerides Cholesterol LDL Cholesterol, Calc VLDL Cholesterol, Calc HDL Cholesterol Cholesterol/HDL Ratio Specimen Rejected 05/22/17 02:04 WBC RBC Hgb Hct MCV MCH MCHC RDW Plt Count MPV Immature Gran % Seg Neutrophils % Lymphocytes % Monocytes % Eosinophils % Basophils % Neutrophils # Lymphocytes # Monocytes # Eosinophils # Basophils # PT INR APTT Heparin Anti-Xa, Unfract Sodium Potassium Chloride Carbon Dioxide BUN Creatinine Est GFR ( Amer) Est GFR (Non-Af Amer) BUN/Creatinine Ratio Glucose Calculated Osmolality Calcium Magnesium Troponin I Triglycerides Cholesterol LDL Cholesterol, Calc VLDL Cholesterol, Calc HDL Cholesterol Cholesterol/HDL Ratio Specimen Rejected Contaminated - Impressions Impressions Chest CTA 05/21/17 15:39 IMPRESSION: No evidence of pulmonary embolism or acute pulmonary abnormality. D/ / Alvin Toribio MD / Alvin Toribio MD Interpreting Provider: Alvin Toribio MD - ABG Interpretation ABG results: PT/INR, D-dimer PT 11.7 Seconds (9.4-12.1) 05/22/17 02:04 Consult Discharge Plan - Plan Referrals: Ck Taylor, [employer] M[employer] SUPERVISOR [Primary Care Provider] -
[2017-05-22] MEDS ORDERED: Nitroglycerin 0.4 MG TAB.SUBL SL PRN (09:58)
--- NOTE | 2017-05-22 10:06 | Cardiology Progress Note ---
Date of Encounter: 05/22/17 Time of Encounter: 09:59 Assessment and Plan (1) NSTEMI (non-ST elevated myocardial infarction) Current Visit: Yes Status: Acute Per Cardiology: NSTEMI with troponin 2.09, 2.48, 2.48. Currently pain free. TTE 02/2017: EF 65%. Mild concentric LVH. No significant valvular disease. Stress test 02/2017: Gated EF 70%. Small, mild intensity reversible perfusion defect involving the mid to apical anteroseptum and apical lateral segments. Findings suspected to be due to breast attenuation. Ischemia could not be ruled out. Inconclusive stress test. She was scheduled with cardiology to discuss test results. CTA negative for PE. Brilinta 180 mg load given at [facility]. Patient noted to have abnormal elevated PTT after receiving brilinta. Brilinta held last night after PTT continued to elevate. She denies signs of bleeding. Patient has history of factor XIII deficiency. Hematology following, appreciate recommendations. LHC not recommended due to elevating PTT. Medical management recommended. Check limited TTE. Asa, statin, and bb. Add imdur 30 mg daily and NTG SL PRN chest pain. Smoking cessation discussed. Patient is not a candidate for cardiac rehab in the setting of medical management. Please call with questions. Discussion w patient/family: The assessment and plan as outlined above was discussed with the patient and/or family members who expressed understanding and agreement. All questions were answered. Thank you for involving us in the care of your patient. Please call with any questions. 1. NSTEMI Subjective Principal diagnosis: NSTEMI Interval history: Ms. Hope denies sign of bleeding. Denies recurrent chest pain. Brilinta held last night for increasing PTT levels. Objective Vital Signs, Last 4 Hours Temp Pulse Resp BP Pulse Ox 05/22/17 07:52 94 05/22/17 07:15 98.5 F 71 14 102/67 94 General: Conversant, No Apparent Distress HEENT: Atraumatic, Normocephaly, Mucus Membranes Moist Neck: No JVD, Normal carotid pulses Cardiac: Reg Rate and Rhythm, Normal S1 and S2, No Murmur Lungs: Normal Breath Sounds, No Wheeze, Rales, Rhonchi Neuro: Alert and responsive, No focal deficits noted Abdomen: Soft, Non-Tender Skin: No rashes noted on visualized skin Musculoskeletal: No Chest Wall Tenderness Extremities: No Clubbing, No Cyanosis, No Edema, Normal Pulses Results 05/22/17 02:04 05/22/17 02:04 Lab Results 05/21/17 05/21/17 05/21/17 14:00 14:00 14:00 WBC 8.9 Hgb 14.6 Hct 40.9 Plt Count 285 INR APTT Sodium Potassium Chloride Carbon Dioxide BUN Creatinine Glucose Calcium Magnesium 2.0 Troponin I 2.48 H* 05/21/17 05/21/17 05/21/17 14:00 15:03 16:30 WBC Hgb Hct Plt Count INR 1.0 APTT 261.6 H* 288.3 H* Sodium 141 Potassium 3.7 Chloride 109 Carbon Dioxide 27 BUN 15 Creatinine 0.73 Glucose 105 H Calcium 9.8 Magnesium Troponin I 05/21/17 05/22/17 05/22/17 20:01 02:04 02:04 WBC 8.6 Hgb 14.5 Hct 41.6 Plt Count 308 INR APTT Sodium Potassium Chloride Carbon Dioxide BUN Creatinine Glucose Calcium Magnesium Troponin I 2.48 H* 2.06 H* 05/22/17 05/22/17 02:04 02:04 WBC Hgb Hct Plt Count INR 1.1 APTT > 360.0 H* Sodium 139 Potassium 3.4 L Chloride 106 Carbon Dioxide 27 BUN 12 Creatinine 0.70 Glucose 115 H Calcium 9.8 Magnesium Troponin I - Imaging and Cardiology Stress Test: report reviewed Echo: report reviewed Consult Discharge Plan - Plan Referrals: Ck Taylor, PARTS SALESPERSON [Primary Care Provider] -
[2017-05-22] MEDS: Nicotine 14 MG PATCH.TD24 TD SCH (11:39)
[2017-05-22] MEDS: Isosorbide MONOnitrate (24 HR) 30 MG TAB.ER.24H PO SCH (11:39)
[2017-05-22] MEDS: *HR* HYDROcodone/Acet 5/325 mg TABLET PO PRN ×3 (13:56→22:34)
--- NOTE | 2017-05-22 16:11 | Internal Med Progress Note ---
Date of Encounter: 05/22/17 Time of Encounter: 11:40 - Assessment and plan (1) NSTEMI (non-ST elevated myocardial infarction) Current Visit: Yes Status: Acute Assessment and plan: Patient with acute non-ST elevation SD. However given history of factor XIII deficiency, poor candidate for cardiac catheterization and management with PCI and dual antiplatelet therapy. Also note a candidate for heparin. Continue conservative medical management with aspirin, statin and beta isaac. Imdur for chest pain. High risk for complications due to acute non-ST elevation SD and elevated APTT. (2) Elevated partial thromboplastin time (PTT) Current Visit: Yes Status: Acute Assessment and plan: Patient with elevated APTT due to use of Brilinta in this patient. Coagulation panel has been sent. We will follow. 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 Coagulation workup continuing. Hematology following. We will follow recommendations. Patient not a good candidate for cardiac catheterization. Currently patient has not had any active bleeding. We will continue to follow APTT (4) COPD (chronic obstructive pulmonary disease) Current Visit: Yes Status: Chronic Assessment and plan: Not in acute exacerbation. Continue bronchodilators as needed Qualifiers: COPD type: emphysema Emphysema type: unspecified Qualified Code(s): J43.9 - Emphysema, unspecified (5) HTN (hypertension) Current Visit: Yes Status: Chronic Assessment and plan: Blood pressure is well controlled. Qualifiers: Hypertension type: essential hypertension Qualified Code(s): I10 - Essential (primary) hypertension (6) HLD (hyperlipidemia) Current Visit: Yes Status: Chronic Assessment and plan: Total cholesterol level 165 and LDL at 90. At goal. Continue statin. Qualifiers: Hyperlipidemia type: pure hypercholesterolemia Qualified Code(s): E78.00 - Pure hypercholesterolemia, unspecified; E78.0 - Pure hypercholesterolemia - Subjective Interval history: She no longer having any chest pain. Denies any shortness of breath or palpitations. No signs of overt bleeding. No nausea or vomiting. - Constitutional Vitals: Temp Pulse Resp BP Pulse Ox 98.3 F 63 16 117/79 98 05/22/17 10:51 05/22/17 10:51 05/22/17 10:51 05/22/17 10:51 05/22/17 10:51 General appearance: Present: cooperative, A&O X 3, pleasant, no acute distress, obese, answers questions appropriately - Respiratory Respiratory exam: Present: CTAB. Absent: accessory muscle use, rales, rhonchi, wheezes - Cardiovascular Cardiovascular exam: Present: RRR, +S1, +S2. Absent: diastolic murmur, gallop, rubs, systolic murmur - GI/Abdominal GI/Abdominal exam: Present: normal bowel sounds, soft, no peritoneal signs. Absent: distended, tenderness - Extremities Exam Extremities exam: Present: warm, radial pulses palpable and symetrical. Absent : calf tenderness, cyanotic, pedal edema - Neurological Exam Neurological exam: Present: alert, oriented X3, no focal deficits. Absent: facial droop, speech deficit Internal Medicine: Result - Labs CBC & Chem 7: 05/22/17 02:04 05/22/17 02:04 Labs: Short CBC 05/22/17 Range/Units 02:04 WBC 8.6 (4.3-11.1) K/mcL Hgb 14.5 (11.5-15.4) g/dL Hct 41.6 (35.3-44.9) % Plt Count 308 (140-400) K/mcL Neutrophils # 5.5 (1.6-8.9) K/mcL BMP 05/22/17 02:04 Sodium 139 Potassium 3.4 L Chloride 106 Carbon Dioxide 27 BUN 12 Creatinine 0.70 Glucose 115 H Calcium 9.8 Cardiac Enzymes 05/21/17 05/22/17 Range/Units 20:01 02:04 Troponin I 2.48 H* 2.06 H* (0-0.03) ng/mL - ABG Interpretation ABG results: PT/INR, D-dimer PT 11.7 Seconds (9.4-12.1) 05/22/17 02:04 - Impressions Impressions Chest CTA 05/21/17 15:39 IMPRESSION: No evidence of pulmonary embolism or acute pulmonary abnormality. D/ / Alvin Toribio MD / Alvin Toribio MD Interpreting Provider: Alvin Toribio MD Consult Discharge Plan - Plan Referrals: Ck Taylor, RN DOCUMENTATION [Primary Care Provider] - (web request sent) Pj Millard, GABBY [Advanced Practice Nurse] - 06/06/17 2:00 pm
[2017-05-23] MEDS: *HR* HYDROcodone/Acet 5/325 mg TABLET PO PRN ×2 (04:29→09:29)
[2017-05-23 04:59] LABS: Activated Partial Thrombo Time 326.1 Seconds (26.0-36.0)
--- NOTE | 2017-05-23 06:52 | Electrocardiograph Report ---
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
[2017-05-23] MEDS: Aspirin Enteric Coated 81 MG Tablet PO SCH (09:22)
[2017-05-23] MEDS: hydroCHLOROthiazide 25 MG TABLET PO SCH (09:22)
[2017-05-23] MEDS: Isosorbide MONOnitrate (24 HR) 30 MG TAB.ER.24H PO SCH (09:23)
[2017-05-23] MEDS: Topiramate 100 MG TABLET PO SCH (09:23)
[2017-05-23] MEDS: Furosemide 20 MG TABLET PO SCH (09:23)
[2017-05-23] MEDS: Nicotine 14 MG PATCH.TD24 TD SCH (09:24)
[2017-05-23] MEDS: Loratadine 10 MG TABLET PO SCH (09:24)
--- NOTE | 2017-05-23 09:35 | Oncology Inp Progress Note ---
Date of Encounter: 05/23/17 Time of Encounter: 09:33 (1) Chest pain Current Visit: Yes Status: Acute Assessment and plan: Troponins are trending down and she denies chest pain during the visit. In view of worsening values of APTT without a clear explanation, I'd recommend to hold off on plans for cath/PCI. will complete coagulation work up. As discussed with hematology lab, most of the labs are sent out and probably wont be here until Saturday. Ideally she should not be discharged until coagulation labs are available, to be able to provide appropriate recommendations. Qualifiers: Chest pain type: other chest pain Qualified Code(s): R07.89 - Other chest pain; R07.8 - Other chest pain (2) Bleeding disorder Current Visit: Yes Status: Acute Assessment and plan: APTT values remain significantly prolonged and trending up >300. She is not experiencing any bleeding event or bruising episodes. In view of low anti Xa levels, heparin contamination seems unllikely. Potential etiologies to explain prolonge APTT include APS, factor X inhibitor, or coagulation factor deficiencies involving the intrinsec pathway ( since INR was normal, what is consistent with intact extrinsec pathway). Intrinsec pathway factors include factor 8,9, 11, 12, 13. - As described in prior note, check factor 8,9, 11, 12, 13 ( send out). - Check anti cardiolipin antibodies, beta 2 glycoprotein, ; lupus anticoagulant ( send out) - Check fibrinogen. - Monitor APTT daily. -Check mixing study for APTT ( send out). (3) Elevated partial thromboplastin time (PTT) Current Visit: Yes Status: Acute Assessment and plan: I explained to Ms. Hope that her labs revealed persistent APTT prolongation. Now the change in the coloration of her urine is concerning for hematuria (she will need an UA for confirmation). In addition to that, she reports recurrent chest pain. taking in consideration her recent NSTEM, she is at high risk of re infarct or other related complications that may require anticoagulation. I explained her my concerns and the reason to recommend urgent transfer to [facility] for further work up and management of her coagulopathy and ACS. It 's not feasible here to manage her in view that most of required tests are sent outs and wont be available in a timely manner. she expressed agreement with my recommendations. I informed her primary team to make the necessary arrangements. (4) NSTEMI (non-ST elevated myocardial infarction) Current Visit: Yes Status: Acute Assessment and plan: Last troponin trending down, but today reports recurrent chest pain. May consider involving cardiology, but as described above, in view of her ongoing coagulopathy, she she be transferred for urgent diagnostic work up and management of her coagulopathy. Oncology: Subj Interval history: Reports that her urine today looks color marisela Reports recurrent mild chest pain Tolerating meals. Denies hematochezia, melena, or easy bruising. No other significant events. . - Constitutional Vitals: Vital Signs Temp Pulse Resp BP Pulse Ox 05/23/17 06:46 97.9 F 58 16 112/76 98 05/23/17 04:42 97.8 F 93 16 131/91 94 05/23/17 00:03 97.9 F 58 16 96/61 98 05/22/17 19:05 98.6 F 84 16 108/71 97 05/22/17 16:42 98.4 F 63 15 109/70 94 05/22/17 10:51 98.3 F 63 16 117/79 98 Intake and Output 05/22/17 05/23/17 05/23/17 23:59 07:59 15:59 Intake Total 120 / 120 Output Total 0 / 0 500 / 500 Balance 120 / 120 -500 / -500 Intake: Oral 120 / 120 Output: Urine 0 / 0 500 / 500 Other: Meal Dinner Percent of Meal Consumed 100% Weight 104.8 kg Patient Weight 05/23/17 23:59 Weight 104.8 kg General appearance: no acute distress - Head Head exam: Present: normal inspection - ENT ENT exam: Present: normal oropharynx - Respiratory Respiratory exam: Present: CTAB - Cardiovascular Cardiovascular exam: Present: +S1, +S2 - GI/Abdominal GI/Abdominal exam: Present: normal bowel sounds - Neurological Exam Neurological exam: Present: no focal deficits Oncology: Obj Data - Labs CBC & Chem 7: 05/22/17 02:04 05/22/17 02:04 Labs: Laboratory Results - last 24 hr 05/23/17 05/23/17 04:25 07:51 APTT 326.1 H* Fibrinogen 518 H Heparin Anti-Xa, Unfract 0.00 L - ABG Interpretation ABG results: PT/INR, D-dimer PT 11.7 Seconds (9.4-12.1) 05/22/17 02:04 Consult Discharge Plan - Plan Referrals: Ck Taylor, DEVELOPMENT EXECUTIVE [Primary Care Provider] - (web request sent) Pj Millard, GABBY [Advanced Practice Nurse] - 06/06/17 2:00 pm
[2017-05-23 11:41] LABS: Basophils # 0.1 K/mcL (0.0-0.2); Basophils % 0.7 %; Eosinophils # 0.1 K/mcL (0.0-0.6); Eosinophils % 1.3 %; Hematocrit 43.6 % (35.3-44.9); Hemoglobin 15.1 g/dL (11.5-15.4); Immature Granulocytes % 0.1 % (0-4); Lymphocytes # 1.8 K/mcL (0.6-4.6); Lymphocytes % 22.2 %; Mean Corpuscular HGB Conc 34.6 g/dL (31.6-35.5); Mean Corpuscular Volume 92.4 fL (83.0-100.0); Mean Platelet Volume 9.6 fL (9.4-12.4); Monocytes # 0.5 K/mcL (0.0-1.3); Monocytes % 6.3 %; Neutrophils # 5.7 K/mcL (1.6-8.9); Platelet Count 306 K/mcL (140-400); Red Blood Count 4.72 M/mcL (3.82-4.97); Segmented Neutrophils % 69.4 %
--- NOTE | 2017-05-23 11:58 | Electrocardiograph Report ---
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
--- NOTE | 2017-05-23 12:13 | Discharge Summary ---
Date of Encounter: 05/23/17 Time of Encounter: 10:15 - Discharge Diagnosis (1) NSTEMI (non-ST elevated myocardial infarction) Priority: Primary Status: Acute (2) Elevated partial thromboplastin time (PTT) Priority: Secondary Status: Acute (3) Factor XIII deficiency Priority: Secondary Status: Chronic (4) COPD (chronic obstructive pulmonary disease) Priority: Secondary Status: Chronic Qualifiers: COPD type: emphysema Emphysema type: unspecified Qualified Code(s): J43.9 - Emphysema, unspecified (5) HTN (hypertension) Priority: Secondary Status: Chronic Qualifiers: Hypertension type: essential hypertension Qualified Code(s): I10 - Essential (primary) hypertension (6) HLD (hyperlipidemia) Priority: Secondary Status: Chronic Qualifiers: Hyperlipidemia type: pure hypercholesterolemia Qualified Code(s): E78.00 - Pure hypercholesterolemia, unspecified; E78.0 - Pure hypercholesterolemia (7) Chronic diastolic (congestive) heart failure Priority: Secondary Status: Chronic Comments: On oral Lasix - Discharge Medications Home Medications: Albuterol Sulfate [Ventolin Hfa] 2 puff IH Q4H PRN 04/03/17 [History] Atorvastatin Calcium [Lipitor] 20 mg PO HS 04/03/17 [History] Carvedilol [Coreg] 6.25 mg PO BIDWM 04/03/17 [History] DULoxetine [Cymbalta] 30 mg PO BID 04/03/17 [History] Furosemide [Lasix] 20 mg PO DAILY 04/03/17 [History] Losartan Potassium [Cozaar] 100 mg PO DAILY 04/03/17 [History] Omeprazole [PriLOSEC] 40 mg PO DAILY 04/03/17 [History] Potassium Chloride [K-Tab ER] 20 meq PO BID 04/03/17 [History] Topiramate [Topamax] 100 mg PO BID 04/03/17 [History] hydroCHLOROthiazide [Hydrochlorothiazide] 25 mg PO DAILY 04/03/17 [History] Cetirizine HCl [All Day Allergy] 10 mg PO DAILY 05/21/17 [History] Allergies/Adverse Reactions: Allergies methyldopa [From Aldomet] Allergy (Verified 01/17/17 17:35) Hives terfenadine [From Seldane] Allergy (Verified 01/17/17 17:35) Hives Tetracycline Adverse Reaction (Verified 04/03/17 10:19) See Comments YEAST INFECTION Procedures/tests Complete & Pending: Procedures Performed prior 72 hours Category Date Time Status CTA chest [CT angio chest] [CT] Stat Cat Scan 05/21/17 15:39 Completed ECG 12 lead ECG [ECG] Routine Y 05/22/17 03:28 Completed EKG [ECG 12 lead ECG] [ECG] Stat Y 05/21/17 14:58 Completed EV limited echocardiogram Routine Y 05/21/17 16:41 Completed Date of admission: 05/21/17 12:09 Primary care physician: Ck Taylor CNP Consults: 05/21/17 14:26 Consult to Cardiology [CONS] Routine Comment: Consulting Provider: Cardiology Kaylee Reason for Consult: Patient transferred from [facility] w/CP. First trop 0.332. Second trop 2.0. Patient also has Factor XIII deficiency. Call Completed: Yes Consult to Oncology Hematology [CONS] Routine Consulting Provider: Govind August Reason for Consult: Patient has Factor XIII deficiency and requires heparin drip. Patient was given Brilinta at [facility] earlier today. Hematology consulted to assess for hep drip. Call Completed: Yes Discharging clinician: Jona Carrasco Anticipated date of discharge: 05/23/17 - Patient Status Disposition: Transfer Other Condition: Fair Functional capacity at discharge: independent ambulation Overall status at discharge: patient is not back to baseline - Discharge Instructions Instructions: Myocardial Infarction (DC) Follow Up With: Ck Taylor CNP [Primary Care Provider] - (web request sent- patient getting sent to [facility]) Pj Millard CNP [Advanced Practice Nurse] - 06/06/17 2:00 pm - Diet and Activity Diet: low fat, low cholesterol, low salt diet Hospital course: Ms. Hope is a 56 year old female patient with history of coronary artery disease, a coagulation disorder believed to be factor XIII deficiency, was hospitalized here after she presented to [facility] ER with complaints of chest pain. At that time her troponins were checked and were found to be elevated at 0.332. Patient was recommended to be started on Brilinta and she received a loading dose of 180 mg. Initially aPTT at that time was 64.1. Due to her factor XIII deficiency, her APTT was rechecked soon after and was found to be greater than 200. As such Brilinta was stopped and patient was not placed on any heparin drip. Her troponins were continued and continued to rise and peaked at 2.48. Patient was managed medically with aspirin, statin and beta isaac. Hematology was consulted. As the patient would not be a candidate for PCI because she could not be placed on dual antiplatelet therapy given her coagulation disorder, patient did not undergo cardiac catheterization. However, her EKG continued to rise and has trended upwards to greater than 360. We have been unable to get her coagulation profile checked to confirm her diagnosis of factor XIII deficiency. Her prolonged APTT shows some abnormality in extrinsic pathway but hematology is concerned that patient may have additional coagulation abnormalities causing such a high rise in her APTT. Given that the patient has not been treated appropriately for NV due to her coagulation abnormalities and due to the fact that we have not been able to diagnose and appropriately manage her coagulation disorder here, hematology recommends transferring the patient to a tertiary care center for further evaluation. Patient will be transferred to [facility] once she has a bed available today with Dr. Shelton. A 2-D echocardiogram done here showed an ejection fraction of 60% with normal LV chamber size wall thickness and function. Her EKG showed normal sinus rhythm without any acute ST segment changes. - Time Spent with Patient Total time spent providing and/or coordinating discharge services: Greater than 30 minutes (40 min) - Constitutional Vitals: Temp Pulse Resp BP Pulse Ox 98.3 F 60 14 92/57 96 05/23/17 11:51 05/23/17 11:51 05/23/17 11:51 05/23/17 11:51 05/23/17 11:51 General appearance: Present: cooperative, A&O X 3, pleasant, no acute distress, obese, answers questions appropriately - Neck Neck exam general surgery: Present: supple, trachea midline. Absent: lymphadenopathy - Respiratory Respiratory exam: Present: CTAB. Absent: accessory muscle use, rales, rhonchi, wheezes - Cardiovascular Cardiovascular exam: Present: RRR, +S1, +S2. Absent: diastolic murmur, gallop, rubs, systolic murmur - GI/Abdominal GI/Abdominal exam: Present: normal bowel sounds, soft, no peritoneal signs. Absent: distended, tenderness - Extremities Exam Extremities exam: Present: warm, radial pulses palpable and symetrical. Absent : calf tenderness, cyanotic, pedal edema - Neurological Exam Neurological exam: Present: alert, CN II-XII intact, oriented X3, no focal deficits. Absent: facial droop, speech deficit - Skin Skin exam: Present: dry, intact
[2017-05-23 16:31] VITALS: BP 103/62
[2017-05-23] MEDS ORDERED: Acetaminophen/Butalbital/CaffeineTABLET PO PRN (16:36)
[2017-05-25 17:31] LABS: APTT (LE Anticoag) 137 sec (32-48); Diluted Russell Viper Venom 30 sec (33-44); LE Coag APTT Mixing 37 sec (32-48); PT (LE-Anticoag) 12.1 sec (12.0-15.5); Thrombin Time 16.6 sec (14.7-19.5)
== END 2017-05-23 18:26 | disposition other institution (70) | DRG 281 ==
LOC: 2ANU 12:09 → SUATTDRO 12:09
PROVIDERS: ADMIT Nurse Practitioner Family; ATTEND Internal Medicine